=== PATIENT | male | born 1970 | race Caucasian/White ===

== ENCOUNTER 2018-05-28 20:33 | Emergency (ER) | payer MEDICAID ==
[~2018-05-28] VITALS: Ht 175.3 cm; Wt 65.0 kg
[~2018-05-28 20:33] MED LIST: FLUO20CA8 PO; LISI5TAB7 PO; LORA-446 PO; METR500T PO
[2018-05-28] MEDS ORDERED: LIDOCAINE-MPF 2% ,5ML ONE ×2 (20:53→21:59)
[2018-05-28] MEDS ORDERED: LIDOCAINE-MPF 1%, 5ML INFIL ONE (21:00)
[2018-05-28] MEDS ORDERED: ACETAMINOPHEN 325 MG TABLET ONE (21:59)
[2018-05-28] MEDS ORDERED: ACETAMINOPHEN 325 MG TABLET PO ONE ×2 (22:00→23:00)
[2018-05-28] MEDS ORDERED: BACITRACIN ZINC OINT 500U/GM, 0.9 GM ONE (22:53)
[2018-05-28 22:56] VITALS: BP 110/78
[2018-05-28] MEDS ORDERED: DIPH,PERTUSS(ACELL),TET VAC/PF 0.5 ML IM-VACC ONE ×2 (23:00→23:08)
== END 2018-05-28 23:17 | disposition home or self-care (01) ==
LOC: ED 23:00
DX: S06.0X9A Concussion with loss of consciousness of unspecified duration, initial encounter (principal); S02.2XXA Fracture of nasal bones, initial encounter for closed fracture; F10.120 Alcohol abuse with intoxication, uncomplicated; I10 Essential (primary) hypertension; F17.210 Nicotine dependence, cigarettes, uncomplicated; Y04.0XXA Assault by unarmed brawl or fight, initial encounter; Y93.89 Activity, other specified; Y92.098 Other place in other non-institutional residence as the place of occurrence of the external cause; Y99.8 Other external cause status
CPT/HCPCS: 12052; 70450; 70486; 72125; 90471; 90715; 99285

== ENCOUNTER 2018-07-05 22:32 | Emergency (ER) | payer SELFPAY ==
[~2018-07-05] VITALS: Ht 175.3 cm; Wt 58.9 kg
[2018-07-05] MEDS ORDERED: ONDANSETRON ODT 4 MG ONE (22:53)
[2018-07-05] MEDS ORDERED: MORPHINE SULFATE 4 MG/ML, 1ML ONE (22:54)
[2018-07-05] MEDS ORDERED: MORPHINE SULFATE 4 MG/ML, 1ML IVPush PRN (23:00)
[2018-07-05] MEDS ORDERED: ONDANSETRON 2MG/ML, 2ML IVPush ONE (23:00)
[2018-07-05] MEDS ORDERED: SODIUM CHLORIDE 0.9% 1,000ML IVBOLUS ONE (23:00)
[2018-07-05] MEDS ORDERED: SODIUM CHLORIDE FLUSH 10ML SYR IVF ONE (23:00)
[2018-07-05 23:07] LABS: BASOPHILS # (AUTO) 0.02 x10^3/uL (0-0.1); BASOPHILS % (AUTO) 0 % (0-1); EOSINOPHILS # (AUTO) 0.03 x10^3/uL (0-0.4); EOSINOPHILS % (AUTO) 1 % (1-7); LYMPHOCYTES # (AUTO) 1.07 x10^3/uL (1-3.4); LYMPHOCYTES % (AUTO) 21 % (22-44); MD NO; MEAN CORPUSCULAR HEMOGLOBIN 32.9 pg (27.5-34.5); MEAN CORPUSCULAR HGB CONC 34.8 g/dL (33.2-36.2); MEAN CORPUSCULAR VOLUME 94.7 fL (81-97); MEAN PLATELET VOLUME 7.6 fL (7.4-10.4); MONOCYTES # (AUTO) 0.52 x10^3/uL (0.2-0.8); MONOCYTES % (AUTO) 10 % (2-9); NEUTROPHILS # (AUTO) 3.41 x10^3/uL (1.8-6.8); NEUTROPHILS % (AUTO) 68 % (42-75); PLATELET COUNT 116 x10^3/uL (130-400); RED BLOOD COUNT 4.17 x10^6/uL (4.38-5.82); RED CELL DISTRIBUTION WIDTH 13.9 % (9.4-14.8)
[2018-07-05 23:19] LABS: ALANINE AMINOTRANSFERASE 65 U/L (12-78); ALBUMIN 4.1 g/dL (3.4-5.0); ANION GAP 10 mmol/L (5-15); CHLORIDE 104 mmol/L (98-107); CREATININE 0.94 mg/dL (0.7-1.3)
[2018-07-05 23:21] LABS: ALKALINE PHOSPHATASE 131 U/L (45-117); BILIRUBIN,TOTAL 0.7 mg/dL (0.2-1.0); TOTAL PROTEIN 8.2 g/dL (6.4-8.2)
[2018-07-05] MEDS ORDERED: ONDANSETRON ODT 4 MG PO ONE (23:30)
[2018-07-06] MEDS ORDERED: OMNIPAQUE 350 MG/ML, 100ML BOTTLE ONE (00:12)
[2018-07-06] MEDS ORDERED: PROMETHAZINE 25 MG/ML, 1ML IM ONE (00:30)
[2018-07-06] MEDS ORDERED: PROMETHAZINE 25 MG/ML, 1ML ONE (00:31)
[2018-07-06 01:18] VITALS: BP 150/94
[2018-07-06 01:33] LABS: MICROSCOPIC NOT IND
[2018-07-06 01:37] LABS: CULTURE INDICATED? NO
== END 2018-07-06 01:38 | disposition home or self-care (01) ==
LOC: ED 23:47
DX: K85.20 Alcohol induced acute pancreatitis without necrosis or infection (principal); R11.2 Nausea with vomiting, unspecified; F10.220 Alcohol dependence with intoxication, uncomplicated; F17.200 Nicotine dependence, unspecified, uncomplicated; I10 Essential (primary) hypertension; Z88.0 Allergy status to penicillin; Z79.899 Other long term (current) drug therapy
CPT/HCPCS: 36415; 74177; 80053; 80307; 81003; 83690; 85025; 96361; 96372; 96374; 99285; J2550; J7030; Q0162; Q9967

== ENCOUNTER 2019-10-12 11:17 | Emergency (ER) | payer MEDICAID, OTHER ==
[~2019-10-12] VITALS: Ht 177.8 cm; Wt 55.0 kg
[2019-10-12 11:25] VITALS: BP 124/84
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
[2019-10-12] MEDS ORDERED: LORazepam 1MG TABLET ONE (11:44)
--- NOTE | 2019-10-12 11:50 | NUR ---
URINE COLLECTED/SENT TO LAB. MEAL TRAY PROVIDED. SITTER AT DOORWAY. Addendum: 10/12/19 at 1152 by NETTE ATIVAN GIVEN PER ERP ORDER.
[2019-10-12] MEDS ORDERED: LORazepam 1MG TABLET PO ONE (12:00)
[2019-10-12 12:05] LABS: BASOPHILS # (AUTO) 0.05 x10^3/uL (0-0.1); BASOPHILS % (AUTO) 1 % (0-1); EOSINOPHILS # (AUTO) 0.22 x10^3/uL (0-0.4); EOSINOPHILS % (AUTO) 2 % (1-7); LYMPHOCYTES % (AUTO) 21 % (22-44); MD NO; MEAN CORPUSCULAR HEMOGLOBIN 31.6 pg (27.5-34.5); MEAN CORPUSCULAR HGB CONC 33.2 g/dL (33.2-36.2); MEAN CORPUSCULAR VOLUME 95.4 fL (81-97); MEAN PLATELET VOLUME 7.4 fL (7.4-10.4); MONOCYTES # (AUTO) 0.45 x10^3/uL (0.2-0.8); MONOCYTES % (AUTO) 4 % (2-9); NEUTROPHILS # (AUTO) 8.06 x10^3/uL (1.8-6.8); NEUTROPHILS % (AUTO) 72 % (42-75); PLATELET COUNT 241 x10^3/uL (130-400); RED BLOOD COUNT 4.72 x10^6/uL (4.38-5.82); RED CELL DISTRIBUTION WIDTH 13.6 % (9.4-14.8)
[2019-10-12 12:15] LABS: ALANINE AMINOTRANSFERASE 29 U/L (12-78); ALBUMIN 3.8 g/dL (3.4-5.0); ANION GAP 11 mmol/L (5-15); CALCIUM 8.4 mg/dL (8.5-10.1); CHLORIDE 111 mmol/L (98-107); CREATININE 0.83 mg/dL (0.7-1.3)
[2019-10-12 12:18] LABS: ALKALINE PHOSPHATASE 76 U/L (45-117); BILIRUBIN,TOTAL 0.3 mg/dL (0.2-1.0); SALICYLATE LEVEL 3.9 mg/dL (2.8-20.0)
[2019-10-12 12:22] LABS: AMPHETAMINE SCREEN, URINE Negative (Negative); BARBITURATE SCREEN, URINE Negative (Negative); BENZODIAZEPINE SCREEN, URINE Negative (Negative); CANNABINOID SCREEN, URINE Negative (Negative); COCAINE SCREEN, URINE Negative (Negative); METHADONE SCREEN, URINE Negative (Negative); OPIATE SCREEN, URINE Negative (Negative)
--- NOTE | 2019-10-12 12:46 | NUR ---
PT RESTING QUIETLY W/EYES CLOSED, 100% MEAL TRAY EATEN. CONTINUE W/CLOSE OBS.
== END 2019-10-12 13:40 | disposition home or self-care (01) ==
LOC: ED 13:00
DX: F10.229 Alcohol dependence with intoxication, unspecified (principal); F17.200 Nicotine dependence, unspecified, uncomplicated; Y90.0 Blood alcohol level of less than 20 mg/100 ml
CPT/HCPCS: 36415; 80053; 80307; 85025; 99283

== ENCOUNTER 2019-11-09 20:50 | Emergency (ER) | payer MEDICAID ==
[~2019-11-09] VITALS: Ht 170.2 cm; Wt 65.0 kg
[2019-11-09 21:01] VITALS: BP 123/86
--- NOTE | 2019-11-09 21:16 | NUR ---
CURRENTLY UNSTEADY GAIT. BLANKET GIVEN.
--- NOTE | 2019-11-09 22:23 | NUR ---
AMBULATORY WITH STEADY GAIT. AWAITING FOR DC.
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
== END 2019-11-09 22:46 | disposition home or self-care (01) ==
LOC: ED 22:35
DX: F10.120 Alcohol abuse with intoxication, uncomplicated (principal); I10 Essential (primary) hypertension; Y90.0 Blood alcohol level of less than 20 mg/100 ml
CPT/HCPCS: 99283

== ENCOUNTER 2019-11-24 17:44 | Emergency (ER) | payer MEDICAID ==
[~2019-11-24] VITALS: Ht 175.3 cm; Wt 65.0 kg
[2019-11-24 17:50] VITALS: BP 131/87
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
--- NOTE | 2019-11-24 18:41 | NUR ---
TASK RN BEDSIDE REPORT TO GISELE JAIMES.
--- NOTE | 2019-11-24 19:26 | NUR ---
PT THREW FULL URINAL ACROSS THE ROOM SPLLING URINE ACROSS THE ROOM. TOLD PT HE CANT DO THINGS LIKE THAT AND HE SAID "IM LEAVING". PT WAS ESCORTED OUT WITH A STEADY GAIT. PT FULLY CLOTHED IN WARM CLOTHING AND HAS ALL BELONGINGS.
== END 2019-11-24 19:29 | disposition left against medical advice (07) ==
LOC: ED 18:13
DX: F10.220 Alcohol dependence with intoxication, uncomplicated (principal); R07.9 Chest pain, unspecified; Y90.9 Presence of alcohol in blood, level not specified
CPT/HCPCS: 71045; 93005; 99283